=== PATIENT | female | born 2005 | race Caucasian/White ===

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

== ENCOUNTER 2023-03-06 19:46 | Emergency (ER) | payer BC ==
[~2023-03-06] VITALS: Ht 167 cm; Wt 57.6 kg
--- NOTE | 2023-03-06 19:56 | ED Abdominal Pain ---
General Stated Complaint: ABD PAIN History of Present Illness Date Seen by Provider: Mar 06, 2023 Time Seen by Provider: 19:51 Initial Comments 17-year-old female presents with mid to upper left-sided abdominal pain that started about 15-20 minutes prior to arrival. Reports she was eating at [employer] when it happened. She felt like she needed to go the bathroom and when she did she felt the pain got worse. She denies any nausea or vomiting. She denies any sexual activity. Allergies and Home Medications Allergies Coded Allergies: No Allergy Information Available (Unverified , 10/25/21) Patient Home Medication List Home Medication List Reviewed: Yes Review of Systems Review of Systems Constitutional: no symptoms reported Respiratory: No Symptoms Reported Cardiovascular: No Symptoms Reported Gastrointestinal: See HPI, Abdominal Pain; Denies Diarrhea; Nausea; Denies Vomiting Genitourinary: Denies Burning, Denies Discharge Musculoskeletal: no symptoms reported Skin: no symptoms reported Psychiatric/Neurological: No Symptoms Reported Endocrine: No Symptoms Reported Physical Exam Vital Signs Vital Signs - First Documented 03/06/23 19:54 Temp 36.5 Pulse 99 Resp 16 B/P (MAP) 139/81 (100) Pulse Ox 96 O2 Delivery Room Air Capillary Refill : Height/Weight/BMI Height: '" Weight: lbs. oz. kg; BMI Method: General Appearance: WD/WN, no apparent distress Respiratory: lungs clear, normal breath sounds Cardiovascular: normal peripheral pulses, regular rate, rhythm Gastrointestinal: soft; No guarding, No rebound; tenderness (Mid to upper left abdomen, no lower abdominal or pelvic tenderness) Neurologic/Psychiatric: alert, normal mood/affect, oriented x 3 Progress/Results/Core Measures Results/Orders Lab Results Laboratory Tests Test 03/06/23 20:00 Range/Units White Blood Count 7.0 4.3-11.0 10^3/uL Red Blood Count 4.56 3.80-5.11 10^6/uL Hemoglobin 13.8 11.5-16.0 g/dL Hematocrit 41 35-52 % Mean Corpuscular Volume 89 80-99 fL Mean Corpuscular Hemoglobin 30 25-34 pg Mean Corpuscular Hemoglobin Concent 34 32-36 g/dL Red Cell Distribution Width 11.5 10.0-14.5 % Platelet Count 304 130-400 10^3/uL Mean Platelet Volume 9.4 9.0-12.2 fL Immature Granulocyte % (Auto) 0 % Neutrophils (%) (Auto) 54 42-75 % Lymphocytes (%) (Auto) 34 12-44 % Monocytes (%) (Auto) 8 0-12 % Eosinophils (%) (Auto) 2 0-10 % Basophils (%) (Auto) 0 0-10 % Neutrophils # (Auto) 3.8 1.8-7.8 10^3/uL Lymphocytes # (Auto) 2.4 1.0-4.0 10^3/uL Monocytes # (Auto) 0.6 0.0-1.0 10^3/uL Eosinophils # (Auto) 0.2 0.0-0.3 10^3/uL Basophils # (Auto) 0.0 0.0-0.1 10^3/uL Immature Granulocyte # (Auto) 0.0 0.0-0.1 10^3/uL Urine Color YELLOW Urine Clarity SL CLOUDY Urine pH 6.5 5-9 Urine Specific [place] <=1.005 1.016-1.022 Urine Protein NEGATIVE NEGATIVE Urine Glucose (UA) NEGATIVE NEGATIVE Urine Ketones NEGATIVE NEGATIVE Urine Nitrite NEGATIVE NEGATIVE Urine Bilirubin NEGATIVE NEGATIVE Urine Urobilinogen 0.2 < = 1.0 MG/DL Urine Leukocyte Esterase NEGATIVE NEGATIVE Urine RBC (Auto) NEGATIVE NEGATIVE Urine RBC NONE /HPF Urine WBC 0-2 /HPF Urine Squamous Epithelial Cells 10-25 H /HPF Urine Crystals NONE /LPF Urine Bacteria NEGATIVE /HPF Urine Casts NONE /LPF Urine Mucus NEGATIVE /LPF Urine Culture Indicated NO Sodium Level 138 135-145 MMOL/L Potassium Level 3.8 3.6-5.0 MMOL/L Chloride Level 102 98-107 MMOL/L Carbon Dioxide Level 27 21-32 MMOL/L Anion Gap 9 5-14 MMOL/L Blood Urea Nitrogen 11 7-18 MG/DL Creatinine 0.76 0.60-1.30 MG/DL Estimat Glomerular Filtration Rate 116 BUN/Creatinine Ratio 14 Glucose Level 82 70-105 MG/DL Calcium Level 9.9 8.5-10.1 MG/DL Corrected Calcium 9.7 8.5-10.1 MG/DL Total Bilirubin < 0.2 0.1-1.0 MG/DL Aspartate Amino Transf (AST/SGOT) 19 5-34 U/L Alanine Aminotransferase (ALT/SGPT) 13 0-55 U/L Alkaline Phosphatase 71 40-136 U/L C-Reactive Protein < 0.30 <0.50 MG/DL Total Protein 7.5 6.4-8.2 GM/DL Albumin 4.3 3.2-4.5 GM/DL My Orders Orders - VAZQUEZ NINA DO Cbc And Automated Diff (03/06/23 19:58) Comprehensive Metabolic Panel (03/06/23 19:58) Ua Culture If Indicated (03/06/23 19:58) Crp Fs (03/06/23 19:58) Urine Bedside (03/06/23 19:58) Abdomen Flat & Upright/Decub (03/06/23 19:58) Metoclopramide Injection (Metoclopramide (03/06/23 20:52) Diphenhydramine Injection (Diphenhydram (03/06/23 20:52) Vital Signs/I&O 03/06/23 19:54 Temp 36.5 Pulse 99 Resp 16 B/P (MAP) 139/81 (100) Pulse Ox 96 O2 Delivery Room Air Progress Progress Note : Progress Note Patient diagnostic studies ordered reviewed and interpreted by me. She has nonspecific mid upper left abdomen pain. She does not have any pain down her lower abdomen or pelvic region. Pain started after eating [employer] suspect is gastroenteritis versus colic or similar etiology. She does not have any urinary pain or symptoms. She does not have any concerning physical exam for ovarian torsion the pain is quite higher than her ovary region. Patient's labs have no acute findings. Patient has a normal x-ray. I will prescribe her Bentyl for discomfort. At this time we do not have p.o. Bentyl available only IM and would prefer not to give an IM shot. We did discuss CT abdomen pelvis with her and her mom and at this time I felt the they would defer as risk of radiation ex posure does not likely outweigh the benefit of benign exam and findings that would be on a CT. He will return to ER as needed. I did offer Toradol shot but she reports that she had in the past and felt like she passed out after it. Patient stable and discharged home. Departure Impression Primary Impression: Abdominal pain Qualified Codes: R10.12 - Left upper quadrant pain Disposition: HOME, SELF-CARE Condition: Stable Departure-Patient Inst. Patient Instructions: Severe Abdominal Pain, Adult (DC), Gastritis (DC) Add. Discharge Instructions: Tylenol or ibuprofen as needed for discomfort. Return to the ER with any concerns. Follow-up with your primary care provider if symptoms do not improve over the next couple days. Scripts Dicyclomine HCl (Dicyclomine HCl) 20 Mg Tablet 20 MG PO Q6H PRN for ABDOMINAL PAIN, #20 TAB Prov: VAZQUEZ NINA DO 03/06/23 VAZQUEZ NINA DO Mar 06, 2023 19:56
[2023-03-06 20:05] LABS: BASOPHILS % (AUTO) 0 % (0-10); EOSINOPHILS # (AUTO) 0.2 10^3/uL (0.0-0.3); EOSINOPHILS % (AUTO) 2 % (0-10); HEMATOCRIT 41 % (35-52); HEMOGLOBIN 13.8 g/dL (11.5-16.0); LYMPHOCYTES # (AUTO) 2.4 10^3/uL (1.0-4.0); LYMPHOCYTES % (AUTO) 34 % (12-44); MEAN CORPUSCULAR HEMOGLOBIN 30 pg (25-34); MEAN CORPUSCULAR HGB CONC 34 g/dL (32-36); MEAN CORPUSCULAR VOLUME 89 fL (80-99); MEAN PLATELET VOLUME 9.4 fL (9.0-12.2); MONOCYTES # (AUTO) 0.6 10^3/uL (0.0-1.0); MONOCYTES % (AUTO) 8 % (0-12); NEUTROPHILS # (AUTO) 3.8 10^3/uL (1.8-7.8); NEUTROPHILS % (AUTO) 54 % (42-75); PLATELET COUNT 304 10^3/uL (130-400)
[2023-03-06 20:10] LABS: BILIRUBIN,URINE NEGATIVE (NEGATIVE); COLOR,URINE YELLOW; GLUCOSE, URINE (UA) NEGATIVE (NEGATIVE); KETONES,URINE NEGATIVE (NEGATIVE); LEUKOCYTE ESTERASE ,URINE NEGATIVE (NEGATIVE); NITRITE,URINE NEGATIVE (NEGATIVE); PH,URINE 6.5 (5-9); PROTEIN,URINE NEGATIVE (NEGATIVE)
[2023-03-06 20:15] LABS: BACTERIA,URINE NEGATIVE /HPF; WBC,URINE 0-2 /HPF
[2023-03-06 20:16] LABS: CLARITY,URINE SL CLOUDY
--- NOTE | 2023-03-06 20:24 | Diagnostic Imaging Report ---
INDICATION: Left-sided abdominal pain. EXAMINATION: Supine and upright abdominal images were obtained. FINDINGS: Lung bases are clear. Bowel gas pattern is normal. There is no pathologic mass or calcification. IMPRESSION: No acute abnormality in the abdomen. Dictated by: Dictated on workstation # [id number]
[2023-03-06 20:25] LABS: SODIUM 138 MMOL/L (135-145)
[2023-03-06 20:27] LABS: BUN/CREATININE RATIO 14; CARBON DIOXIDE 27 MMOL/L (21-32); CHLORIDE 102 MMOL/L (98-107); CREATININE SERUM 0.76 MG/DL (0.60-1.30); GFR ESTIMATED 116; POTASSIUM 3.8 MMOL/L (3.6-5.0)
[2023-03-06 20:28] LABS: ALANINE AMINOTRANSFERASE 13 U/L (0-55); ALBUMIN 4.3 GM/DL (3.2-4.5); ALKALINE PHOSPHATASE 71 U/L (40-136); BILIRUBIN,TOTAL < 0.2 MG/DL (0.1-1.0); CALCIUM 9.9 MG/DL (8.5-10.1); GLUCOSE 82 MG/DL (70-105); TOTAL PROTEIN 7.5 GM/DL (6.4-8.2)
[2023-03-06] MEDS ORDERED: METOCLOPRAMIDE INJ 10 MG/2 ML IVP STA (20:52)
[2023-03-06] MEDS ORDERED: diphenhydrAMINE INJ 50 MG/ML VIAL IV STA (20:52)
[2023-03-06] MEDS ORDERED: DICY20TA PO (21:00)
[2023-03-06 21:02] VITALS: BP 115/76
== END 2023-03-06 21:03 | disposition home or self-care (01) ==
LOC: EDUNIT# 19:46 → ER FS 19:50
DX: R10.12 Left upper quadrant pain (principal)
CPT/HCPCS: 36415; 74019; 80053; 81000; 84703; 85025; 86141